=== PATIENT | female | born 1970 | race Caucasian/White ===

== ENCOUNTER 2016-06-20 07:29 | Emergency (ER) ==
[2016-06-20 07:45] VITALS: BP 114/75; TEMP 98.8; BMI 20.3
--- NOTE | 2016-06-20 08:03 | ED.PDOC ---
General ED Provider: Dr. RICH JOHNSON JR Chief Complaint: Vaginal Bleeding Stated Complaint: Heavy vaginal bleeding. Onset yesterday evening. Pt was on her menstrual cycle 3 days before bleeding became heavy. States had been doing yard work yesterday prior to onset of heavy bleeding. 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 No acute cramping. Pain to lower back.[End] 98.8 78 20 99% 114/75 9/10 14 pads over 24 hours Time Seen by Physician: 07:56 Mode of Arrival: Walk-In Information Source: Patient Exam Limitations: No limitations Primary Care Provider: JOSE ROBERTO NICE states has OB in [place]- "never switched when I moved" Nursing and Triage Documentation Reviewed and Agree: No Review of Systems - Review Of Systems Constitutional: Reports: No symptoms Eyes: Reports: No symptoms Ears, Nose, Mouth, Throat: Reports: No symptoms Respiratory: Reports: No symptoms Cardiac: Reports: No symptoms GI: Reports: No symptoms : Reports: Other Musculoskeletal: Reports: No symptoms Skin: Reports: No symptoms Neurological: Reports: No symptoms Endocrine: Reports: No symptoms Hematologic/Lymphatic: Reports: No symptoms, Blood clots All Other Systems: Other Past Medical History - Past Medical History Endocrine: Reports: None Cardiovascular: Reports: DVT (DVT 20 yrs ago- at 12 had knee injury resolved over one year swelling resolved over one year on coumadin for two years no further issues but no oc's) Respiratory: Reports: None Hematological: Reports: None Gastrointestinal: Reports: None Genitourinary: Reports: None Neuro/Psych: Reports: None Musculoskeletal: Reports: None Cancer: Reports: None Last Menstrual Period: now - Surgical History General Surgical History: Reports: (x2). Denies: Other - Family History Family History: Reports: Unknown - Social History Smoking Status: Never smoker Hx Substance Use: No Alcohol Screening: None Physical Exam - Physical Exam Appearance: Well-appearing, Thin Eyes: SAVANAH, EOMI, Conjunctiva clear ENT: Ears normal, Nose normal, Oropharynx normal Neck: Supple Respiratory: Airway patent, Breath sounds clear, Breath sounds equal, Respirations nonlabored Cardiovascular: RRR, Pulses normal, No rub, No murmur GI/: Soft, Nontender, No masses, Bowel sounds normal, No Organomegaly Musculoskeletal: Normal strength, ROM intact, No edema, No calf tenderness Skin: Warm, Dry, Normal color Neurological: Sensation intact, Motor intact, Reflexes intact, Cranial nerves intact, Alert, Oriented Psychiatric: Affect appropriate, Mood appropriate Critical Care Note - Critical Care Note Total Time (mins): 0 Course - Course Vital Signs: Temp Pulse Resp BP Pulse Ox 06/20/16 07:32 98.8 F 78 20 114/75 99 Departure - Departure Time of Disposition: 08:07 Disposition: HOME SELF-CARE Discharge Problem: Bleeding from vagina Instructions: Menorrhagia (ED) Condition: Good Pt referred to PMD for follow-up: Yes Additional Instructions: follow up with OB this week discuss endometrial biopsy(not performed here) return or to OB if more than 2 pads per hour, if light headed, or palpitations test and hematocrit not done may use NSAIDS for symptoms(Ibuprofen or Naprosyn) at over the counter doses Allergies/Adverse Reactions: Allergies Penicillins Adverse Reaction (Verified 06/20/16 07:43) Sulfa (Sulfonamide Antibiotics) Adverse Reaction (Verified 06/20/16 07:43) Home Medications: Ambulatory Orders Clindamycin Phos/Benzoyl Perox [Acanya Gel Pump] 50 gm TP DIRECTED PRN Doxycycline Hyclate 100 mg PO DIRECTED PRN 06/20/16
== END 2016-06-20 08:15 | disposition home or self-care (01) ==
LOC: ED 07:29
DX: N93.9 Abnormal uterine and vaginal bleeding, unspecified (principal); M54.5 Low back pain
CPT/HCPCS: 99282

== ENCOUNTER 2016-06-25 14:09 | Emergency (ER) ==
[2016-06-25 14:18] VITALS: BP 125/80; TEMP 97.7
--- NOTE | 2016-06-25 14:51 | ED.PDOC ---
General ED Provider: Dr. EVAN ADAME Chief Complaint: Back Pain Stated Complaint: Been hurting in the lower back, has h/o kidney infection Time Seen by Physician: 14:49 Mode of Arrival: Walk-In Information Source: Patient Primary Care Provider: JOSE ROBERTO NICE Nursing and Triage Documentation Reviewed and Agree: Yes Musculoskeletal Complaint Exam - Lower Extremity Complaint/Exam Location of Pain: Reports: Right, Left Mechanism of Injury: Reports: No known trauma Symptoms Are: Still present Initial Severity: Mild Current Severity: Mild Character: Reports: Dull, Aching Alleviating: Reports: Rest Aggravating: Reports: Movement Able to Bear Weight: No Associated Signs and Symptoms: Denies: Swelling, Redness, Bruising, Fever, Weakness, Numbness, Tingling DVT Risk Factors: Reports: None Septic Arthritis Risk Factors: Reports: None Related Surgical History: Reports: None Lower Extremity Findings: Absent: Swelling, Ecchymosis, Abnormal contour Differential Diagnoses: Other (uti) Review of Systems - Review Of Systems Constitutional: Reports: No symptoms Eyes: Reports: No symptoms Ears, Nose, Mouth, Throat: Reports: No symptoms Respiratory: Reports: No symptoms Cardiac: Reports: No symptoms GI: Reports: No symptoms : Reports: No symptoms Musculoskeletal: Reports: Back pain Skin: Reports: No symptoms Neurological: Reports: No symptoms Endocrine: Reports: No symptoms Hematologic/Lymphatic: Reports: No symptoms All Other Systems: Reviewed and Negative Past Medical History - Past Medical History Previously Healthy: No Endocrine: Reports: None Cardiovascular: Reports: DVT (DVT 20 yrs ago- at 12 had knee injury resolved over one year swelling resolved over one year on coumadin for two years no further issues but no oc's) Respiratory: Reports: None Hematological: Reports: None Gastrointestinal: Reports: None Genitourinary: Reports: None Neuro/Psych: Reports: None Musculoskeletal: Reports: None Cancer: Reports: None Last Menstrual Period: 06/16/2016 - Surgical History General Surgical History: Reports: (x2). Denies: Other - Family History Family History: Reports: Unknown - Social History Smoking Status: Never smoker Hx Substance Use: No Alcohol Screening: None - Immunizations Tetanus Shot up to Date: No Physical Exam - Physical Exam Appearance: Ill-appearing, Cachectic Ill-appearing: Mild Eyes: EOMI, Conjunctiva clear ENT: Ears normal, Nose normal, Oropharynx normal Respiratory: Airway patent, Breath sounds clear, Breath sounds equal, Respirations nonlabored Cardiovascular: RRR, Pulses normal, No rub, No murmur GI/: Soft, Nontender, No masses, Bowel sounds normal, No Organomegaly Musculoskeletal: Normal strength, ROM intact, No edema, No calf tenderness Skin: Warm, Dry, Normal color Neurological: Sensation intact, Motor intact, Reflexes intact, Cranial nerves intact, Alert, Oriented Psychiatric: Affect appropriate, Mood appropriate Critical Care Note - Critical Care Note Total Time (mins): 0 Course - Course Hematology/Chemistry: 06/25/16 14:55 06/25/16 14:55 Orders, Labs, Meds: Lab Review 06/25/16 06/25/16 14:52 14:55 WBC 5.92 RBC 4.10 L Hgb 13.0 Hct 37.3 MCV 91.0 MCH 31.7 H MCHC 34.9 RDW Coeff of Gregorio 11.9 Plt Count 283 Immature Gran % (Auto) 0.3 Neut % (Auto) 73.0 Lymph % (Auto) 20.1 [place] % (Auto) 5.4 Eos % (Auto) 0.7 Baso % (Auto) 0.5 Immature Gran # (Auto) 0.0 Neut # 4.3 Lymph # 1.2 [place] # 0.3 L Eos # 0.0 Baso # 0.0 Sodium 141 Potassium 4.3 Chloride 103 Carbon Dioxide 25 Anion Gap 17.3 BUN 13 Creatinine 0.80 Estimated GFR (MDRD) 77.00 BUN/Creatinine Ratio 16.25 Glucose 92 Calcium 9.8 Total Bilirubin 0.41 AST 19 ALT 10 L Alkaline Phosphatase 39 L Total Protein 7.8 Albumin 4.6 Globulin 3.2 Albumin/Globulin Ratio 1.44 Urine Color Yellow Urine Clarity Clear Urine pH 7.0 Ur Specific [place] 1.010 Urine Protein Negative Urine Glucose (UA) Negative Urine Ketones Negative Urine Blood Negative Urine Nitrite Negative Urine Bilirubin Negative Urine Urobilinogen 0.2 Ur Leukocyte Esterase Negative Orders Category Date Time Status CBC W/ AUTO DIFF Stat LAB 06/25/16 14:55 Completed CMP [COMPREHENSIVE METABOLIC PANEL] Stat LAB 06/25/16 14:55 Completed UA [URINALYSIS C & S IF INDICATED] Stat LAB 06/25/16 14:52 Completed Vital Signs: Temp Pulse Resp BP Pulse Ox 06/25/16 14:11 97.7 F 86 16 125/80 98 Departure - Departure Time of Disposition: 15:34 Disposition: HOME SELF-CARE Discharge Problem: Pelvic pain Instructions: Pelvic Pain in Women (ED) Condition: Stable Pt referred to PMD for follow-up: Yes Additional Instructions: Needs f/u with OBGYN Tylenol prn Allergies/Adverse Reactions: Allergies Penicillins Adverse Reaction (Verified 06/20/16 07:43) Sulfa (Sulfonamide Antibiotics) Adverse Reaction (Verified 06/20/16 07:43) Home Medications: Ambulatory Orders Clindamycin Phos/Benzoyl Perox [Acanya Gel Pump] 50 gm TP DIRECTED PRN Doxycycline Hyclate 100 mg PO DIRECTED PRN 06/20/16 Ascorbate Calcium [Vitamin C] 1 tab PO DAILY 06/25/16 Biotin [Meribin] 1 cap PO DAILY 06/25/16 Calcium Carbonate/Vitamin D3 [Calcarb+D 600/400 mg] 1 tab PO DAILY 06/25/16 Multivitamin [Multi-Vitamin Daily] 1 tab PO DAILY 06/25/16 Vit #108/Iron/FA [ One Tablet] 1 tab PO DAILY 06/25/16 Vitamin E 400 unit PO DAILY 06/25/16 Disposition Discussed With: Patient, Family
[2016-06-25 15:00] LABS: BILIRUBIN,URINE Negative (NEGATIVE); KETONES,URINE Negative (NEGATIVE); LEUKOCYTE ESTERASE ,URINE Negative (NEGATIVE); NITRITE,URINE Negative (NEGATIVE); PROTEIN,URINE Negative (NEGATIVE); URINE, BLOOD Negative (NEGATIVE)
[2016-06-25 15:01] LABS: ADD URINE MICROSCOPIC NO
[2016-06-25 15:01] LABS: BASOPHILS % (AUTO) 0.5 % (0.0-3.0); EOSINOPHILS % (AUTO) 0.7 % (0.0-7.0); HEMATOCRIT 37.3 % (37.0-47.0); IMMATURE GRANULOCYTE % (AUTO) 0.3 % (0.0-5.0); LYMPHOCYTES # (AUTO) 1.2 K/uL (0.60-3.4); LYMPHOCYTES % (AUTO) 20.1 (10.0-50.0); MEAN CORPUSCULAR HEMOGLOBIN 31.7 pg (27.0-31.0); MEAN CORPUSCULAR HGB CONC 34.9 (31.8-35.4); MONOCYTES # (AUTO) 0.3 K/uL (0.4-2.0); MONOCYTES % (AUTO) 5.4 (0-10); NEUTROPHILS # (AUTO) 4.3 K/ul (2.0-6.9); PLATELET COUNT 283 10^3/uL (140-440); WHITE BLOOD COUNT 5.92 K/ul (4.6-10.2)
[2016-06-25 15:20] LABS: ALBUMIN 4.6 g/dL (3.4-5.0); ALBUMIN/GLOBULIN RATIO 1.44; ANION GAP 17.3; BILIRUBIN,TOTAL 0.41 mg/dL (0.00-1.20); BUN/CREATININE RATIO 16.25; CALCIUM 9.8 mg/dL (8.2-10.2); CREATININE 0.8 mg/dL (0.60-1.30); POTASSIUM 4.3 mmol/L (3.5-5.10); TOTAL PROTEIN 7.8 g/dL (6.4-8.2)
== END 2016-06-25 15:48 | disposition home or self-care (01) ==
LOC: ED 14:09
DX: R10.2 Pelvic and perineal pain (principal); M54.5 Low back pain
CPT/HCPCS: 36415; 80053; 81001; 85025; 99283

== ENCOUNTER 2017-03-11 08:26 | Emergency (ER) ==
[2017-03-11 08:32] VITALS: BP 135/71; TEMP 98.7; BMI 19.5
[2017-03-11] MEDS ORDERED: DILAUDID 1 MG/ML SYRINGE IVP STA (08:37)
[2017-03-11] MEDS ORDERED: ZOFRAN 4 MG/2 ML IVP STA (08:37)
[2017-03-11 08:54] LABS: BASOPHILS % (AUTO) 0.8 % (0.0-3.0); EOSINOPHILS % (AUTO) 0.6 % (0.0-7.0); HEMATOCRIT 35.3 % (37.0-47.0); HEMOGLOBIN 12.3 g/dl (12.0-16.0); IMMATURE GRANULOCYTE % (AUTO) 0.2 % (0.0-5.0); LYMPHOCYTES % (AUTO) 18.6 (10.0-50.0); MEAN CORPUSCULAR HEMOGLOBIN 31.7 pg (27.0-31.0); MEAN CORPUSCULAR HGB CONC 34.8 (31.8-35.4); MONOCYTES # (AUTO) 0.3 K/uL (0.4-2.0); MONOCYTES % (AUTO) 5.5 (0-10); NEUTROPHILS # (AUTO) 3.8 K/ul (2.0-6.9); NEUTROPHILS % (AUTO) 74.3; PLATELET COUNT 235 10^3/uL (140-440); RED BLOOD COUNT 3.88 10^6/ul (4.20-5.40); WHITE BLOOD COUNT 5.12 K/ul (4.6-10.2)
[2017-03-11 09:14] LABS: SERUM PREGNANCY INTERNAL QC INTERNAL QC VALID
[2017-03-11 09:20] LABS: ALANINE AMINOTRANSFERASE 12 U/L (12-78); ALBUMIN 4.1 g/dL (3.4-5.0); ALBUMIN/GLOBULIN RATIO 1.28; ALKALINE PHOSPHATASE 40 U/L (42-98); AMYLASE 71 U/L (25-115); ANION GAP 12.6; ASPARTATE AMINO TRANSFERASE 18 U/L (15-37); BILIRUBIN,TOTAL 0.42 mg/dL (0.00-1.20); BLOOD UREA NITROGEN 15 mg/dL (7-18); CALCIUM 8.7 mg/dL (8.2-10.2); CARBON DIOXIDE 26 mmol/L (21-32); CHLORIDE 105 mmol/L (98-107); CREATINE KINASE 76 U/L; CREATININE 0.75 mg/dL (0.60-1.30); GLUCOSE 127 mg/dL (70-110); LIPASE 23 U/L (8-78); POTASSIUM 3.6 mmol/L (3.5-5.10); SODIUM 140 mmol/L (136-145); TOTAL PROTEIN 7.3 g/dL (6.4-8.2)
--- NOTE | 2017-03-11 10:01 | CT ---
EXAM: CT scan of the chest with contrast HISTORY: Possible dissection or oral syndrome, pain TECHNIQUE: Imaging of the chest was performed following the intravenous administration of contrast. 5 mm thin axial images and coronal and sagittal reconstructions were provided for interpretation. FINDINGS: There is no evidence of dissection seen within the thoracic aorta. The ascending thoracic aorta measures approximately 2.2 cm diameter. The descending thoracic aorta mid segment measures ap proximately 1.9 cm diameter. Lungs are clear. Lung volumes are normal. No mediastinal masses are s een. No lytic or blastic lesions are seen within the osseous structures. IMPRESSION: No acute abnormalities are seen within the thorax.
--- NOTE | 2017-03-11 10:16 | ED.PDOC ---
General ED Provider: Dr. ANA LILIA NAVARRO Chief Complaint: Shoulder Pain/Injury Stated Complaint: posterior chest wall pain Time Seen by Physician: 08:30 Mode of Arrival: Walk-In Information Source: Patient Exam Limitations: No limitations Primary Care Provider: JOSE ROBERTO NICE Nursing and Triage Documentation Reviewed and Agree: Yes Review of Systems - Review Of Systems Constitutional: Reports: No symptoms Eyes: Reports: No symptoms Ears, Nose, Mouth, Throat: Reports: No symptoms Respiratory: Reports: No symptoms Cardiac: Reports: Chest pain (between shoulder blades ) GI: Reports: No symptoms : Reports: No symptoms Musculoskeletal: Reports: No symptoms Skin: Reports: No symptoms Neurological: Reports: No symptoms Endocrine: Reports: No symptoms Hematologic/Lymphatic: Reports: No symptoms All Other Systems: Reviewed and Negative Past Medical History - Past Medical History Previously Healthy: No Endocrine: Reports: None Cardiovascular: Reports: DVT (DVT 20 yrs ago- at 12 had knee injury resolved over one year swelling resolved over one year on coumadin for two years no further issues but no oc's) Respiratory: Reports: None Hematological: Reports: None Gastrointestinal: Reports: None Genitourinary: Reports: None Neuro/Psych: Reports: None Musculoskeletal: Reports: None Cancer: Reports: None Last Menstrual Period: 02/11/17 - Surgical History General Surgical History: Reports: (x2). Denies: Other - Family History Family History: Reports: Unknown - Social History Smoking Status: Never smoker Hx Substance Use: No Alcohol Screening: None - Immunizations Tetanus Shot up to Date: No Physical Exam - Physical Exam Appearance: Well-appearing, No pain distress, Well-nourished Eyes: SAVANAH, EOMI, Conjunctiva clear ENT: Ears normal, Nose normal, Oropharynx normal Respiratory: Airway patent, Breath sounds clear, Breath sounds equal, Respirations nonlabored Cardiovascular: RRR, Pulses normal, No rub, No murmur GI/: Soft, Nontender, No masses, Bowel sounds normal, No Organomegaly Musculoskeletal: Normal strength, ROM intact, No edema, No calf tenderness Skin: Warm, Dry, Normal color Neurological: Sensation intact, Motor intact, Reflexes intact, Cranial nerves intact, Alert, Oriented Psychiatric: Affect appropriate, Mood appropriate Interpretation - Radiology Interpretation Radiology Interpretation By: Radiologist Radiology Results: No acute changes Exam Interpreted: CT Scan - Accounting Technician Rate: Normal Rhythm: Sinus Ectopy: None - EKG Interpretation Rate: Normal Rhythm: Sinus Ectopy: None Pala: NL ST Segment: Normal Critical Care Note - Critical Care Note Total Time (mins): 0 Course - Course Hematology/Chemistry: 03/11/17 08:48 03/11/17 08:48 Orders, Labs, Meds: Lab Review 03/11/17 03/11/17 03/11/17 08:48 08:48 08:48 WBC 5.12 RBC 3.88 L Hgb 12.3 Hct 35.3 L MCV 91.0 MCH 31.7 H MCHC 34.8 RDW Coeff of Gregorio 12.2 Plt Count 235 Immature Gran % (Auto) 0.2 Neut % (Auto) 74.3 Lymph % (Auto) 18.6 [place] % (Auto) 5.5 Eos % (Auto) 0.6 Baso % (Auto) 0.8 Immature Gran # (Auto) 0.0 Neut # 3.8 Lymph # 1.0 [place] # 0.3 L Eos # 0.0 Baso # 0.0 Sodium 140 Potassium 3.6 Chloride 105 Carbon Dioxide 26 Anion Gap 12.6 BUN 15 Creatinine 0.75 Estimated GFR (MDRD) 82.00 BUN/Creatinine Ratio 20.00 Glucose 127 H Calcium 8.7 Total Bilirubin 0.42 AST 18 ALT 12 Alkaline Phosphatase 40 L Total Creatine Kinase 76 Troponin I < 0.0100 Total Protein 7.3 Albumin 4.1 Globulin 3.2 Albumin/Globulin Ratio 1.28 Amylase 71 Lipase 23 Serum , Qual Negative Orders Category Date Time Status EKG-(ED ONLY) Stat CARDIO 03/11/17 08:37 Completed NPO REMINDER: IMAGING ONCE CARE 03/11/17 08:38 Completed ED IV/MEDIPORT/POWERPORT .ONCE EMERGENCY 03/11/17 08:37 Active AMYLASE Stat LAB 03/11/17 08:48 Completed CBC W/ AUTO DIFF Stat LAB 03/11/17 08:48 Completed COMPREHENSIVE METABOLIC PANEL Stat LAB 03/11/17 08:48 Completed CREATINE KINASE Stat LAB 03/11/17 08:48 Completed LIPASE Stat LAB 03/11/17 08:48 Completed SERUM Stat LAB 03/11/17 08:48 Completed TROPONIN I Stat LAB 03/11/17 08:48 Completed 0.9 % Sodium Chloride [Saline Flush] MEDS 03/11/17 08:37 Active 1 syr IVF PRN PRN Hydromorphone HCl [Dilaudid 1 mg/ml Syringe] MEDS 03/11/17 08:37 Discontinued 0.5 mg IVP ONCE STA Ondansetron HCl/Pf [Zofran 4 mg/2 ml] MEDS 03/11/17 08:37 Discontinued 4 mg IVP ONCE STA CT CHEST W/CONTRAST Stat RADS 03/11/17 08:38 Completed Medications Generic Name Dose Route Start Last Admin Trade Name Freq PRN Reason Stop Dose Admin Sodium Chloride 1 syr 03/11/17 08:37 03/11/17 08:48 Saline Flush IVF 1 syr PRN PRN Administration To flush IV Discontinued Medications Generic Name Dose Route Start Last Admin Trade Name Freq PRN Reason Stop Dose Admin Hydromorphone HCl 0.5 mg 03/11/17 08:37 03/11/17 08:48 Dilaudid 1 Mg/Ml Syringe IVP 03/11/17 08:38 0.5 mg ONCE STA Administration Ondansetron HCl 4 mg 03/11/17 08:37 03/11/17 08:48 Zofran 4 Mg/2 Ml IVP 03/11/17 08:38 4 mg ONCE STA Administration Vital Signs: Temp Pulse Resp BP Pulse Ox 03/11/17 08:27 98.7 F 85 22 135/71 97 RACHELE Risk Score RACHELE Risk Score: Risk Score Odds of by 30D 0 0.1 (0.1-0.2) 1 0.3 (0.2-0.3) 2 0.4 (0.3-0.5) 3 0.7 (0.6-0.9) 4 1.2 (1.0-1.5) 5 2.2 (1.9-2.6) 6 3.0 (2.5-3.6) 7 4.8 (3.8-6.1) Departure - Departure Time of Disposition: 10:15 Disposition: HOME SELF-CARE Discharge Problem: Chest pain Qualifiers: Chest pain type: unspecified Qualified Code(s): R07.9 - Chest pain, unspecified Instructions: Angina (ED), Chest Pain (ED), Costochondritis (ED), Thoracic Pain (ED), Chest Wall Pain (ED), Noncardiac Chest Pain (ED) Condition: Good Pt referred to PMD for follow-up: Yes Additional Instructions: Please call your Family Physician as soon as possible to schedule a follow-up appointment. Allergies/Adverse Reactions: Allergies Penicillins Adverse Reaction (Verified 03/11/17 08:31) Sulfa (Sulfonamide Antibiotics) Adverse Reaction (Verified 03/11/17 08:31) Home Medications: Ambulatory Orders Doxycycline Hyclate 100 mg PO DIRECTED PRN 06/20/16 Ascorbate Calcium [Vitamin C] 1 tab PO DAILY 06/25/16 Biotin [Meribin] 1 cap PO DAILY 06/25/16 Calcium Carbonate/Vitamin D3 [Calcarb+D 600/400 mg] 1 tab PO DAILY 06/25/16 Multivitamin [Multi-Vitamin Daily] 1 tab PO DAILY 06/25/16 Vit 108/Iron/Folic AC [ One Tablet] 1 tab PO DAILY 06/25/16 Vitamin E 400 unit PO DAILY 06/25/16
== END 2017-03-11 10:32 | disposition home or self-care (01) ==
LOC: ED 08:26
DX: R07.9 Chest pain, unspecified (principal); M54.6 Pain in thoracic spine; Z86.718 Personal history of other venous thrombosis and embolism
CPT/HCPCS: 36415; 80053; 82150; 82550; 83690; 84484; 84703; 85025; 93005; 93010; 96372; 96375; 99284

== ENCOUNTER 2017-03-11 16:12 | Emergency (ER) ==
[2017-03-11 16:16] VITALS: BP 112/71; TEMP 99.6; BMI 20.3
[2017-03-11] MEDS ORDERED: ZOFRAN 4 MG/2 ML IM STA (16:21)
[2017-03-11] MEDS ORDERED: DILAUDID 1 MG/ML SYRINGE IM STA (16:21)
[2017-03-11 17:16] LABS: BASOPHILS % (AUTO) 0.5 % (0.0-3.0); HEMATOCRIT 35.5 % (37.0-47.0); HEMOGLOBIN 12.3 g/dl (12.0-16.0); IMMATURE GRANULOCYTE % (AUTO) 0.3 % (0.0-5.0); LYMPHOCYTES # (AUTO) 0.7 K/uL (0.60-3.4); LYMPHOCYTES % (AUTO) 11.2 (10.0-50.0); MEAN CORPUSCULAR HEMOGLOBIN 31.5 pg (27.0-31.0); MEAN CORPUSCULAR HGB CONC 34.6 (31.8-35.4); MONOCYTES # (AUTO) 0.3 K/uL (0.4-2.0); MONOCYTES % (AUTO) 4.6 (0-10); NEUTROPHILS # (AUTO) 5.3 K/ul (2.0-6.9); NEUTROPHILS % (AUTO) 83.4; PLATELET COUNT 251 10^3/uL (140-440); WHITE BLOOD COUNT 6.32 K/ul (4.6-10.2)
--- NOTE | 2017-03-11 17:16 | ED.PDOC ---
General ED Provider: Dr. ANA LILIA NAVARRO Chief Complaint: Abdominal Pain Stated Complaint: abdominal pain upper back pain Time Seen by Physician: 16:16 (seen this morning by myself returns with pain see with nursing staff ) Mode of Arrival: Walk-In Information Source: Patient, Family Exam Limitations: No limitations Primary Care Provider: JOSE ROBERTO NICE Referred to ED by: Other Nursing and Triage Documentation Reviewed and Agree: Yes (seen with nursing staff no injury) GI Complaint Exam - Abdominal Pain Complaint/Exam Onset: Gradual Duration: all day today Symptoms Are: Still present Timing: Constant Initial Severity: Moderate Current Severity: Moderate Location of Pain: Discrete (T SPINE RIGHT LATERAL CHEST WALL) Character: Reports: Cramping Aggravating: Reports: None Alleviating: Reports: Medication Associated Signs and Symptoms: Reports: Cough, Decreased appetite, Nausea. Denies: Diaphoresis, Fever, Chest pain, Dizziness, Back pain, Constipation, Blood in stool, Dysuria, Urinary frequency, Decreased urine output, Vaginal bleeding, Vaginal discharge, Vomiting, Diarrhea, Sore throat, Decreased activity Related History: Reports: Similar episode AAA Risk Factors: Reports: None Cardiac Risk Factors: Reports: None Ectopic Risk Factors: Reports: None Ovarian Torsion Risk Factors: Reports: None Surgical Obstruction Risk Factors: Reports: None Related Surgical History: Reports: None Patient Rh Status: Unknown Differential Diagnoses: Appendicitis, Bowel Obstruction, Constipation, GB Quality Indicators for AMI: EKG in 10min. Quality Indicators for Cardiac Chest Pain: EKG in 10min. Quality Indicator For Non-Traumatic Chest Pain/Syncope: EKG Performed Review of Systems - Review Of Systems Constitutional: Reports: Malaise Eyes: Reports: No symptoms Ears, Nose, Mouth, Throat: Reports: No symptoms Respiratory: Reports: No symptoms Cardiac: Reports: Chest pain GI: Reports: Nausea, Poor appetite, Poor fluid intake : Reports: No symptoms Musculoskeletal: Reports: Back pain Skin: Reports: No symptoms Neurological: Reports: No symptoms Endocrine: Reports: No symptoms Hematologic/Lymphatic: Reports: No symptoms All Other Systems: Reviewed and Negative Past Medical History - Past Medical History Previously Healthy: No Endocrine: Reports: None Cardiovascular: Reports: DVT (DVT 20 yrs ago- at 12 had knee injury resolved over one year swelling resolved over one year on coumadin for two years no further issues but no oc's) Respiratory: Reports: None Hematological: Reports: None Gastrointestinal: Reports: None Genitourinary: Reports: None Neuro/Psych: Reports: None Musculoskeletal: Reports: None Cancer: Reports: None Last Menstrual Period: 3 weeks ago - Surgical History General Surgical History: Reports: (x2). Denies: Other - Family History Family History: Reports: Unknown - Social History Smoking Status: Never smoker Hx Substance Use: No Alcohol Screening: None Physical Exam - Physical Exam Appearance: Ill-appearing Ill-appearing: Mild Pain Distress: Mild Eyes: SAVANAH, EOMI, Conjunctiva clear ENT: Ears normal, Nose normal, Oropharynx normal Respiratory: Airway patent, Breath sounds clear, Breath sounds equal, Respirations nonlabored Cardiovascular: RRR, Pulses normal, No rub, No murmur GI/: Soft, Nontender, No masses, Bowel sounds normal, No Organomegaly Musculoskeletal: Normal strength (NO VERTEBRAL POINT TENDER NESS), ROM intact, No edema, No calf tenderness Skin: Warm, Dry, Normal color Neurological: Sensation intact, Motor intact, Reflexes intact, Cranial nerves intact, Alert, Oriented Psychiatric: Affect appropriate, Mood appropriate Interpretation - Radiology Interpretation Radiology Interpretation By: Radiologist Radiology Results: No acute changes - 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 Rate: Normal Rhythm: Sinus Ectopy: None Critical Care Note - Critical Care Note Total Time (mins): 0 Course - Course Orders, Labs, Meds: Orders Category Date Time Status EKG-(ED ONLY) Stat CARDIO 03/11/17 16:53 Ordered CBC W/ AUTO DIFF Stat LAB 03/11/17 16:53 Ordered COMPREHENSIVE METABOLIC PANEL Stat LAB 03/11/17 16:53 Ordered CREATINE KINASE Stat LAB 03/11/17 16:53 Ordered TROPONIN I Stat LAB 03/11/17 16:53 Ordered Hydromorphone HCl [Dilaudid 1 mg/ml Syringe] MEDS 03/11/17 16:21 Discontinued 0.5 mg IM ONCE STA Ondansetron HCl/Pf [Zofran 4 mg/2 ml] MEDS 03/11/17 16:21 Discontinued 4 mg IM ONCE STA CT ABDOMEN/PELVIS WO CONTRAST Stat RADS 03/11/17 16:[address] THORACIC SPINE W/O CONTRAST Stat RADS 03/11/17 16:47 Ordered Medications Discontinued Medications Generic Name Dose Route Start Last Admin Trade Name Freq PRN Reason Stop Dose Admin Hydromorphone HCl 0.5 mg 03/11/17 16:21 03/11/17 16:34 Dilaudid 1 Mg/Ml Syringe IM 03/11/17 16:22 0.5 mg ONCE STA Administration Ondansetron HCl 4 mg 03/11/17 16:21 03/11/17 16:32 Zofran 4 Mg/2 Ml IM 03/11/17 16:22 4 mg ONCE STA Administration Vital Signs: Temp Pulse Resp BP Pulse Ox 03/11/17 16:13 99.6 F 84 20 112/71 99 Departure - Departure Time of Disposition: 19:00 Disposition: HOME SELF-CARE Discharge Problem: Abdominal pain Chest pain Qualifiers: Chest pain type: unspecified Qualified Code(s): R07.9 - Chest pain, unspecified Instructions: Abdominal Pain (ED) Condition: Good Pt referred to PMD for follow-up: Yes Additional Instructions: Please call your Family Physician as soon as possible to schedule a follow-up appointment. Allergies/Adverse Reactions: Allergies Penicillins Adverse Reaction (Verified 03/11/17 16:16) Sulfa (Sulfonamide Antibiotics) Adverse Reaction (Verified 03/11/17 16:16) Home Medications: Ambulatory Orders Doxycycline Hyclate 100 mg PO DIRECTED PRN 06/20/16 Ascorbate Calcium [Vitamin C] 1 tab PO DAILY 06/25/16 Biotin [Meribin] 1 cap PO DAILY 06/25/16 Calcium Carbonate/Vitamin D3 [Calcarb+D 600/400 mg] 1 tab PO DAILY 06/25/16 Multivitamin [Multi-Vitamin Daily] 1 tab PO DAILY 06/25/16 Vit 108/Iron/Folic AC [ One Tablet] 1 tab PO DAILY 06/25/16 Vitamin E 400 unit PO DAILY 06/25/16 Disposition Discussed With: Patient
--- NOTE | 2017-03-11 17:37 | CT ---
EXAM: CT of the thoracic spine without contrast History: Back pain. Comparison: Chest CT 03/11/2017, CT abdomen pelvis 03/11/2017 Technique: Multiplanar CT images through the thoracic spine were obtained without the administration of IV contrast Findings: The visualized lungs are free of infiltrate. No acute fracture or subluxation of the thoracic spine. Moderate to severe degenerative disc disease within the lower cervical spine at C6-7. Mild to moderate multilevel degenerative disc space narrow ing within the thoracic spine with endplate sclerosis and osteophyte formation. The right paracentra l disc bulge at T10-T11 causing moderate central canal stenosis. Small paracentral disc bulge at T7-T 8 causing mild central canal stenosis. Impression: 1. No acute osseous abnormality of the thoracic spine. 2. Degenerative disc disease within the lower cervical spine. 3. Mild to moderate degenerative disc disease of the thoracic spine. 4. Moderate central canal stenosis at T10-T11.
[2017-03-11 17:44] LABS: ALANINE AMINOTRANSFERASE 12 U/L (12-78); ALBUMIN 4.2 g/dL (3.4-5.0); ALBUMIN/GLOBULIN RATIO 1.27; ALKALINE PHOSPHATASE 40 U/L (42-98); ANION GAP 12.9; ASPARTATE AMINO TRANSFERASE 18 U/L (15-37); BILIRUBIN,TOTAL 0.51 mg/dL (0.00-1.20); BLOOD UREA NITROGEN 14 mg/dL (7-18); BUN/CREATININE RATIO 18.91; CALCIUM 9.1 mg/dL (8.2-10.2); CARBON DIOXIDE 25 mmol/L (21-32); CHLORIDE 104 mmol/L (98-107); CREATINE KINASE 78 U/L; CREATININE 0.74 mg/dL (0.60-1.30); GLUCOSE 104 mg/dL (70-110); POTASSIUM 3.9 mmol/L (3.5-5.10); SODIUM 138 mmol/L (136-145); TOTAL PROTEIN 7.5 g/dL (6.4-8.2)
--- NOTE | 2017-03-11 17:49 | CT ---
EXAM: CT abdomen pelvis without contrast HISTORY: Nausea, pain . COMPARISON: None. TECHNIQUE: Serial axial images of the abdomen pelvis were performed from the lung bases through the inferior pelvis without contrast. These were viewed in multiple planes. FINDINGS: Abdomen. Images of the lower thorax show no pulmonary infiltrate. There is no intrperitoneal free air. The l iver, spleen, pancreas, adrenal glands are unremarkable. There is no renal calculus. No obstruction of either kidney or ureter is seen. There is vicarious excretion of contrast into the gallbladder. No obvious biliary ductal dilatation is seen. There is no ascites. There is no small bowel obstructi on or bowel wall thickening. The appendix is normal. There is no acute inflammation large bowel. Mo derate amount dense stool seen throughout portions of the colon. Pelvis. There is no adenopathy. No free fluid. No hernia is seen. Uterus midline. No adnexal mass identif ied IMPRESSION: 1. No bowel or urinary obstruction. Appendix appears normal. 2. Solid organs to include liver, spleen, and pancreas show no acute findings. 3. There is vicarious excretion of contrast at the level of the gallbladder. This may be a normal variant. If there is persisting pain right upper quadrant , a follow-up ultrasound could be perform ed to further assess gallbladder.
== END 2017-03-11 18:07 | disposition home or self-care (01) ==
LOC: ED 16:12
DX: R07.9 Chest pain, unspecified (principal); R10.9 Unspecified abdominal pain; M54.6 Pain in thoracic spine; R05 Cough; Z86.718 Personal history of other venous thrombosis and embolism
CPT/HCPCS: 36415; 80053; 82550; 84484; 85025; 93005; 93010; 96372; 99284